=== PATIENT | male | born 1970 | race Caucasian/White ===

== ENCOUNTER 2020-10-18 20:21 | Emergency (ER) | payer SELFPAY ==
[~2020-10-18] VITALS: Ht 172.7 cm; Wt 93.2 kg
[2020-10-18 20:32] VITALS: TEMP 98.4
[2020-10-18] MEDS ORDERED: TOPROL XL 25MG25 MG PO (21:02)
[2020-10-18] MEDS ORDERED: PRINIVIL5 MG PO (21:02)
[2020-10-18] MEDS ORDERED: PRIL40 PO (21:02)
[2020-10-18] MEDS ORDERED: LIPITOR20 MG PO (21:03)
[2020-10-18] MEDS ORDERED: NEURONTIN400 MG/CAP PO (21:03)
[2020-10-18] MEDS ORDERED: PROZAC60 MG (21:04)
[2020-10-18] MEDS ORDERED: ATIVAN 0.50.5 MG/TAB PO (22:33)
[2020-10-18] MEDS ORDERED: ULTRAM 50MG TAB50 MG PO (22:33)
[2020-10-18 22:50] VITALS: BP 141/86; PULSE 59
== END 2020-10-18 22:50 | disposition home or self-care (01) ==
LOC: COL.ER 20:21
DX: S16.1XXA Strain of muscle, fascia and tendon at neck level, initial encounter (principal); I25.10 Atherosclerotic heart disease of native coronary artery without angina pectoris; I25.2 Old myocardial infarction; E78.5 Hyperlipidemia, unspecified; K21.9 Gastro-esophageal reflux disease without esophagitis; F43.10 Post-traumatic stress disorder, unspecified; F17.210 Nicotine dependence, cigarettes, uncomplicated; Z88.2 Allergy status to sulfonamides; V89.2XXA Person injured in unspecified motor-vehicle accident, traffic, initial encounter